=== PATIENT | male | born 1955 | race Caucasian/White ===

== ENCOUNTER 2025-03-18 11:30 | Outpatient (CLI) | payer MEDICARE, OTHER, SELFPAY | END 2025-03-18 11:31 | disposition home or self-care (01) | PROVIDERS: PCP Internal Medicine; Visit Provider Internal Medicine | DX: Z12.5 Encounter for screening for malignant neoplasm of prostate (principal); Z13.1 Encounter for screening for diabetes mellitus; Z13.6 Encounter for screening for cardiovascular disorders | CPT/HCPCS: 80061; 82947; G0103 ==